=== PATIENT | female | born 1970 | race Caucasian/White ===

== ENCOUNTER 2024-03-31 14:23 | Emergency (ER) | payer OTHER ==
[~2024-03-31] VITALS: Ht 162.6 cm; Wt 65.8 kg
[2024-03-31 14:31] VITALS: BP_SYST 162; PULSE 62; RESP 18; TEMP 98; O2SAT 100
[2024-03-31 15:09] LABS: BASOPHILS % (AUTO) 0.5 % (0.0-2.0); EOSINOPHILS # (AUTO) 0.1 K/uL (0.0-0.4); EOSINOPHILS % (AUTO) 0.8 % (0.0-4.0); HEMATOCRIT 36.2 % (36-48); HEMOGLOBIN 12.2 g/dL (12.0-16.0); LYMPHOCYTES # (AUTO) 1.7 K/uL (1.0-5.5); LYMPHOCYTES % (AUTO) 20.4 % (20.5-51.5); MEAN CORPUSCULAR HEMOGLOBIN 27 pg (27-31); MEAN CORPUSCULAR HGB CONC 34 % (32-36); MEAN CORPUSCULAR VOLUME 80 fL (79.0-98.0); MONOCYTES # (AUTO) 0.5 K/uL (0.0-1.0); MONOCYTES % (AUTO) 6.4 % (1.7-9.3); NEUTROPHILS % (AUTO) 71.9 % (40.0-70.0); PLATELET COUNT (AUTO) 125 K/uL (130-430); RED BLOOD CELL COUNT(AUTO) 4.55 MIL/uL (4.2-6.2); RED CELL DISTRIBUTION WIDTH 13.8 % (9.0-15.0); WHITE BLOOD COUNT (AUTO) 8.4 K/uL (4.8-10.8)
[2024-03-31] MEDS: NACL 0.9% 1,000 ML IV ONE (15:47)
[2024-03-31] MEDS: ONDANSETRON HCL 4 MG/2 ML VIAL IVP ONE (15:47)
[2024-03-31 15:52] LABS: ALANINE AMINOTRANSFERASE 33 U/L (12-78); ALBUMIN 3.9 g/dL (3.4-4.8); ANION GAP 8 (5-15); ASPARTATE AMINOTRANSFERASE 24 U/L (10-37); CALCIUM 9.1 mg/dL (8.4-11.0); CARBON DIOXIDE 31 mmol/L (23-29); CHLORIDE 101 mmol/L (98-107); CREATININE 0.78 mg/dL (0.55-1.30); GFR AFRICAN AMERICAN 99 mL/min (>90); GLUCOSE 115 mg/dL (74-106); SODIUM SERUM 140 mmol/L (136-145); TOTAL BILIRUBIN 0.4 mg/dL (0.0-1.0); TOTAL PROTEIN, SERUM 7.7 g/dL (6.4-8.3); UREA NITROGEN, BLOOD 15 mg/dL (8-21)
[2024-03-31 15:53] LABS: GFR NON AFRICAN-AMERICAN 82 mL/min (>90)
[2024-03-31 15:55] LABS: BILIRUBIN,DIRECT 0.1 mg/dL (0.0-0.3); LIPASE 28 U/L (16-77)
[2024-03-31 16:10] LABS: BILIRUBIN,URINE NEGATIVE (NEGATIVE); BLOOD, URINE NEGATIVE (NEGATIVE); CLARITY/URINE CLEAR (CLEAR); COLOR,URINE YELLOW (YELLOW); GLUCOSE,URINE NEGATIVE (NEGATIVE); KETONES,URINE 1+ (NEGATIVE); LEUKOCYTE ESTERASE ,URINE NEGATIVE (NEGATIVE); NITRITE, URINE NEGATIVE (NEGATIVE); PROTEIN URINE NEGATIVE (NEGATIVE); UROBILINOGEN,URINE 0.2 (0.2-1.0)
[2024-03-31] MEDS ORDERED: ONDA-8 TL (17:09)
[2024-03-31] MEDS: POTASSIUM CHLORIDE 20 MEQ/PKT PACKET PO ONE (17:27)
[2024-03-31 17:47] VITALS: BP_SYST 143; PULSE 62; RESP 16; TEMP 98.1; O2SAT 100
== END 2024-03-31 17:47 | disposition home or self-care (01) ==
LOC: SED 14:23
DX: R11.2 Nausea with vomiting, unspecified (principal); E87.6 Hypokalemia; R53.1 Weakness; I10 Essential (primary) hypertension; Z79.899 Other long term (current) drug therapy
CPT/HCPCS: 99283; 96374; 96361; 80076; 80048; 81001; 83690; 83735; 85025; 84484; 36415; 82948; 81003; J2405; J7030